=== PATIENT | female | born 2000 | race Caucasian/White ===

== ENCOUNTER 2023-08-02 00:07 | Outpatient (CLI) | payer OTHER, SELFPAY ==
[2023-08-02 00:32] VITALS: BP 123/78; PULSE 102; TEMP 37.4; O2SAT 98
[2023-08-02 00:34] VITALS: BP 123/78; PULSE 113
[2023-08-02 00:37] VITALS: PULSE 109; O2SAT 98
[2023-08-02 00:49] VITALS: BMI 30.8
--- NOTE | 2023-08-02 10:51 | OB.TRI.NOTE ---
HPI - General General Date of Admission: 08/02/23 Date of Service: 08/02/23 HPI Narrative RAFA ZULETA, is a 22 F who presents for vaginal bleeding and crampin. 27 weeks, MINAL 11/01/23 PFSH PFSH Home Medications cetirizine 10 mg capsule (Allergy Relief (cetirizine)) 10 mg PO DAILY PRN allergy symptoms 08/02/23 [History Last Taken Unknown] Allergy/AdvReac Type Severity Reaction Status Date / Time No Known Allergies Allergy Verified 08/02/23 00:35 NST FHR Rate Baby A Baseline: 135 Variability:: Moderate Accelerations:: 15 x 15 Decelerations:: None NST Reactive:: Yes Uterine Activity:: None Assessment & Plan (1) Vaginal bleeding during : PLAN: Plan 1) Reactive NST 2) No contractions, signs of labor 3) Monitor bleeding, if flow and at other times other than bowel movement to call. follow up in office 4) D/C home
== END 2023-08-02 01:35 | disposition home or self-care (01) ==
LOC: WPOUT 00:15 → WP 00:15
PROVIDERS: Referring Provider Advanced Practice Midwife; Visit Provider Advanced Practice Midwife
DX: O46.92 Antepartum hemorrhage, unspecified, second trimester (principal); Z3A.27 27 weeks gestation of pregnancy
CPT/HCPCS: 59025; 59050; 87086; 87088; 99221; G0378

== ENCOUNTER 2023-10-29 08:36 | Outpatient (CLI) | payer OTHER, SELFPAY ==
[2023-08-02 00:32] VITALS: RESP 18
[2023-10-29 08:49] VITALS: BMI 35.1
[2023-10-29 08:52] VITALS: BP 124/79; PULSE 106; PULSE 109; RESP 18; TEMP 36.7; O2SAT 98
--- NOTE | 2023-10-29 10:14 | OB.TRI.NOTE ---
HPI - General General Date of Admission: 10/28/23 Date of Service: 10/28/23 Chief Complaint: decreased movement HPI Narrative RAFA ZULETA, is a 22 F who presents to labor and delivery at 39-4/7 weeks complaining of decreased movement. She denied any vaginal bleeding or leaking of fluid. She had some irregular contractions. Maternal Data Information Final MINAL: 10/25/23 Gestational age: 39 4/7 PFSH PFSH Home Medications cetirizine 10 mg capsule (Allergy Relief (cetirizine)) 10 mg PO DAILY PRN allergy symptoms 08/02/23 [History Last Taken Unknown] Allergy/AdvReac Type Severity Reaction Status Date / Time No Known Allergies Allergy Verified 08/02/23 00:35 NST FHR Rate Baby A Baseline: 135 Variability:: Moderate Accelerations:: 15 x 15 Decelerations:: None NST Reactive:: Yes FHR Category:: Category I Uterine Activity:: no regular ctxs Assessment & Plan (1) 39 weeks gestation of : (2) Decreased movement affecting management of mother, antepartum: PLAN: heart tones are category 1. No evidence of labor. Vitals are stable. DC home with routine follow-up or return as needed.
== END 2023-10-29 09:50 | disposition home or self-care (01) ==
LOC: WPOUT 08:39 → WP 08:39
PROVIDERS: Referring Provider Obstetrics & Gynecology; Visit Provider Obstetrics & Gynecology
DX: O36.8130 Decreased fetal movements, third trimester, not applicable or unspecified (principal); Z3A.39 39 weeks gestation of pregnancy
CPT/HCPCS: 59025; 59050; 99221; G0378

== ENCOUNTER 2023-11-01 16:55 | Outpatient (CLI) | payer OTHER, SELFPAY ==
[2023-11-01 17:10] VITALS: BP 130/79; PULSE 115; PULSE 116; RESP 14; TEMP 36.9; O2SAT 98
[2023-11-01 17:13] VITALS: BMI 35.9
[2023-11-01 17:31] LABS: Color, Urine Yellow (Yellow); Glucose, Dipstick Normal (Normal); Ketone-Dipstick Negative (Negative); Leukocyte Esterase-Dipstick 500 /ul (Negative); Nitrite-Dipstick Negative (Negative); Occult Blood-Urine Negative /ul (Negative); Protein-Dipstick Negative (Negative); Specific Gravity, Urine 1.015 (1.002-1.030); Urine Bilirubin Dipstick Negative (Negative); Urine Clarity Clear (Clear); Urine Urobilinogen Normal (Normal); Urine pH 6.5 (5.0 - 8.0)
[2023-11-01 18:11] LABS: ROM Internal Control Test YES-OK TO RESULT pt. (Internal QC); ROM Patient Test Negative (Negative)
--- NOTE | 2023-11-01 20:05 | OB.TRI.NOTE ---
HPI - General General Date of Service: 11/01/23 HPI Narrative RAFA ZULETA, is a 22 F who presents with possible LOF. PFSH PFSH Home Medications cetirizine 10 mg capsule (Allergy Relief (cetirizine)) 10 mg PO DAILY PRN allergy symptoms 08/02/23 [History Last Taken Unknown] vits no.130-ferrous fum 27 mg iron-folic acid 800 mcg tablet ( Vitamin) 1 tab PO DAILY 11/01/23 [History Last Taken Unknown] Allergy/AdvReac Type Severity Reaction Status Date / Time No Known Allergies Allergy Verified 08/02/23 00:35 NST FHR Rate Baby A Baseline: 135 Variability:: Moderate Accelerations:: 15 x 15 Decelerations:: None Uterine Activity:: Irregular Assessment & Plan (1) False labor: PLAN: Plan Reactive NST
== END 2023-11-01 18:26 | disposition home or self-care (01) ==
LOC: WPOUT 16:59 → WP 16:59
PROVIDERS: Visit Provider Obstetrics & Gynecology
DX: O47.9 False labor, unspecified (principal); Z3A.00 Weeks of gestation of pregnancy not specified
CPT/HCPCS: 59025; 59050; 81002; 84112; 99221; G0378

== ENCOUNTER 2023-11-02 19:55 | Inpatient (IN) | payer OTHER, SELFPAY ==
[2023-11-02] VITALS (11 sets, daily range): BP systolic 133–170; BP diastolic 68–87; PULSE 96–107; RESP 16–18; TEMP 36.6–37.4; O2SAT 86–99; BMI 33.5
[2023-11-02] MEDS: Lactated Ringers 1,000 ML 50 ML IV (20:25)
[2023-11-02 20:40] LABS: Absolute Lymphocyte Count 2.26 X10^3/uL (0.83-4.51); Absolute Neutrophil Count 14.5 X10^3/uL (2.0-7.7); Basophil# 0.06 X10^3/uL; Basophil% 0.3 % (0-1); Eosinophil# 0.16 X10^3/uL; Eosinophils% 0.9 % (0-5); Hematocrit 37.4 % (37-47); Hemoglobin 12.5 g/dL (12.0-15.0); Lymphocyte # 2.26 X10^3/ul (0.83-4.51); Lymphocyte % 12.2 % (19-41); Mean Corp Hgb Conc 33.4 g/dL (32-36); Mean Corpuscular Hgb 28.8 pg (27.0-32.0); Mean Corpuscular Volume 86.2 fL (81-99); Mean Platelet Vol. 11.4 fl (6.2-12.0); Monocyte# 1.48 X10^3/uL; NRBC Flagged by Analyzer 0 % (0-5); Neutrophil # 14.52 X10^3/uL (2.7-7.7); Platelet Count 237 K/mm3 (150-450); RBC Distribution Width CV 13.9 % (11.6-14.6); RBC Distribution Width SD 43.6 fl (35.1-43.9); Red Blood Count 4.34 M/mm3 (4.2-5.4); White Blood Count 18.6 K/mm3 (4.4-11.0)
--- NOTE | 2023-11-02 21:22 | HP.PCM.OB_ITS ---
HPI - General General Date of Admission: 11/02/23 HPI Narrative RAFA ZULETA, is a 22 F who presents at 40w1d in active labor. Maternal Data Information MINAL Calculator Estimated Delivery Date Method Current WG Current Estimate 11/01/23 Manual 40w 1d PFSH PFSH Medical History no medical history Home Medications cetirizine 10 mg capsule (Allergy Relief (cetirizine)) 10 mg PO DAILY PRN allergy symptoms 08/02/23 [History Last Taken 11/01/23 21:00 10 mg] vits no.130-ferrous fum 27 mg iron-folic acid 800 mcg tablet ( Vitamin) 1 tab PO DAILY 11/01/23 [History Last Taken 11/02/23 07:00 1 TAB] Allergy/AdvReac Type Severity Reaction Status Date / Time No Known Allergies Allergy Verified 11/02/23 17:31 Surgical History no surgical history Social History Smoking Status: Never smoker History Elective abortions Hx Para 0 Spontaneous abortions Hx # Term Pregnancies Ectopic pregnancies Hx # Pregnancies Multiple births # of living children NST FHR Rate Baby A Baseline: 135 Variability:: Moderate Accelerations:: 15 x 15 Decelerations:: None FHR Category:: Category I Uterine Activity:: Irregular, moderate to strong ROS Constitutional Constitutional: Reports systems reviewed and no addt'l complaints, except as documented; Denies headache(s) Eyes Eyes: Denies acute decrease in peripheral vision, blurry vision or change in v ision ENT HEENT: Reports systems reviewed and no addt'l complaints, except as documented Cardiovascular Cardiovascular: Denies chest pain or dizziness Respiratory/Chest Respiratory/Chest: Denies cough, dyspnea, dyspnea on exertion, shortness of breath at rest or shortness of breath with exertion Gastrointestinal Gastrointestinal: Denies abdominal pain, diarrhea, nausea or vomiting Genitourinary Genitourinary: Denies abdominal discomfort Musculoskeletal Musculoskeletal: Denies limited range of motion Integumentary Integumentary: Reports systems reviewed and no addt'l complaints, except as documented Neurologic Neurologic: Reports systems reviewed and no addt'l complaints, except as documented Psychiatric Psychiatric: Reports systems reviewed and no addt'l complaints, except as documented Endocrine Endocrinology: Reports systems reviewed and no addt'l complaints, except as documented Hematologic/Lymphatic Hematologic/Lymphatic: Reports systems reviewed and no addt'l complaints, except as documented Allergic/Immunologic Allergic/Immunologic: Reports systems reviewed and no addt'l complaints, except as documented Vital Signs Vital Signs Vital Signs: 11/02/23 17:25 11/02/23 17:26 11/02/23 17:25 Temperature Temperature Source Pulse Rate 97 98 Respiratory Rate Blood Pressure 138/87 H BP Systolic 138 BP Diastolic 87 Pulse Ox 11/02/23 17:26 11/02/23 17:25 11/02/23 17:25 Temperature Temperature Source Temporal Pulse Rate Respiratory Rate 16 Blood Pressure BP Systolic BP Diastolic Pulse Ox 99 11/02/23 17:25 11/02/23 19:15 11/02/23 19:15 Temperature 99.2 F H Temperature Source Pulse Rate 96 Respiratory Rate Blood Pressure 139/79 H BP Systolic 139 BP Diastolic 79 Pulse Ox 11/02/23 19:14 11/02/23 19:16 11/02/23 19:16 Temperature 98.1 F Temperature Source Temporal Pulse Rate Respiratory Rate 16 Blood Pressure BP Systolic BP Diastolic Pulse Ox 11/02/23 20:55 11/02/23 20:56 11/02/23 20:55 Temperature Temperature Source Pulse Rate 107 H 101 H Respiratory Rate Blood Pressure 170/76 H BP Systolic 170 BP Diastolic 76 Pulse Ox 11/02/23 20:56 11/02/23 20:58 11/02/23 20:58 Temperature Temperature Source Pulse Rate 106 H Respiratory Rate Blood Pressure BP Systolic BP Diastolic Pulse Ox 98 86 11/02/23 20:59 11/02/23 20:59 Temperature Temperature Source Pulse Rate 102 H Respiratory Rate Blood Pressure 133/75 H BP Systolic 133 BP Diastolic 75 Pulse Ox Weight Weight: 195 lb Body Mass Index (BMI) 33.5 Physical Exam Const alert and oriented x3 General Appearance: cooperative Orientation / Consciousness: awake, oriented to person, oriented to place and oriented to time Exam Limitations: no limitations HEENT normocephalic Head and Scalp: normal to inspection, normocephalic and atraumatic Face and Sinus: normal facial exam Eyes General Eye: normal appearance of both eyes Neck full ROM Chest Chest: symmetrical chest wall rise Resp normal respiratory effort and normal air movement Auscultation: clear to auscultation bilaterally Cardio regular rate, regular rhythm, S1 normal heart sound, S2 normal heart sound, no murmurs, no rub, no gallops and no clicks GI normal to inspection, nondistended, normoactive bowel sounds and non-tender appearance of the vagina normal Bladder / Kidney Exam: no CVA tenderness Manual OB Exam: presentation cephalic, dilated 6cm, effaced 60%, station - 2 and other IBOW Amniotic Fluid: clear amniotic fluid Back/Spine normal ROM Extremity normal to inspection and full ROM Skin no rashes or lesions noted Neuro oriented x3, CN's II-XII intact bilaterally and moves all extremities Sensorium / Orientation: awake, alert and oriented to person Motor Exam: clonus absent Deep Tendon Reflexes: Rt Patellar (L4): 2+ and Lt Patellar (L4): 2+ Labs Labs Labs: Blood Type O POSITIVE Antibody Screen NEGATIVE Hct 37.4 % (37-47) Hgb 12.5 g/dL (12.0-15.0) Syphilis Total Ab Pending 1hr GCT elevated, 3hr GTT negative RPR negative Rubella Positive HBsAG negative HepC negative HIV non reactive O positive GBS negative Assessment & Plan (1) 40 weeks gestation of : (2) Active labor at term: PLAN: Plan 1) Admit to labor and delivery 2) Routine labs 3) Intermittent Auscultation 4) Pain mangement upon request 5) Hydrotherapy 6) GBS negative 7) collaborative physician, notified of patient status and of above assessment and plan
[2023-11-02 21:30] LABS: Syphilis Antibodies Non-reactive
[2023-11-02] MEDS: LACTATED RINGERS 500 ML 999 ML IV (23:07)
[2023-11-03] VITALS (79 sets, daily range): BP systolic 95–149; BP diastolic 49–87; PULSE 90–124; RESP 16–22; TEMP 36.4–38.3; O2SAT 85–100
[2023-11-03] MEDS: Lactated Ringers 1,000 ML 200 ML IV ×2 (04:45→10:40)
[2023-11-03] MEDS: LACTATED RINGERS 500 ML 999 ML IV ×2 (05:38→17:52)
[2023-11-03] MEDS: fentaNYL-bupivacaine (epidural) 100 ML BAG EPIDURAL ×2 (06:30→10:40)
--- NOTE | 2023-11-03 08:17 | PCM.PN.OB ---
Subjective Subjective Resting in bed with epidural. Family at bedside. Objective Data Objective Data Vital Signs: Vital Signs Temp Pulse Resp BP Pulse Ox 99.2 F H 90 20 H 101/52 L 97 11/03/23 07:35 11/03/23 07:47 11/03/23 07:35 11/03/23 07:47 11/03/23 07:45 Weight: 195 lb Body Mass Index (BMI) 33.5 Intake & Output: Intake and Output for Last 24 Hours 11/01/23 11/02/23 11/03/23 23:59 23:59 23:59 Intake Total 541.67 / 541.67 1458.33 / 1458.33 Output Total 700 / 700 Balance 541.67 / 541.67 758.33 / 758.33 Lab / Micro Data 11/02/23 20:25 Labs: Laboratory Results - last 24 hr 11/02/23 20:25: WBC 18.6 H, RBC 4.34, Hgb 12.5, Hct 37.4, MCV 86.2, MCH 28.8, MCHC 33.4, RDW Std Deviation 43.6, RDW Coeff of Ricco 13.9, Plt Count 237, MPV 11.4, Immature Gran % (Auto) 0.600, Neut % (Auto) 78.0 H, Lymph % (Auto) 12.2 L, [place] % (Auto) 8.0, Eos % (Auto) 0.9, Baso % (Auto) 0.3, Absolute Neuts (auto) 14.5 H, Absolute Lymphs (auto) 2.26, Nucleated RBC % 0, Syphilis Total Ab Non-reactive, Blood Type O POSITIVE, Antibody Screen NEGATIVE Physical Exam Manual OB Exam: dilated 7.5cm, effaced 90 and station -1 NST FHR Rate Baby A Baseline: 145 Variability:: Moderate Accelerations:: 15 x 15 Decelerations:: Variable FHR Category:: Category II Uterine Activity:: Irregular Assessment & Plan (1) Active labor at term: (2) 40 weeks gestation of : PLAN: Plan 1) Epidural for pain management 2) Contractions spaced out, IUPC placed. Will wait 30 minutes and if no contractions discuss starting pitocin 3) Category 2 FHT, continue positional changes 4) Dr.Russell amezcua physician and updated on patient status. physician taking over call and updated.
[2023-11-03] MEDS: Oxytocin 15 Units/NS 250ml 15 UNITS/250 ML IV.SOLN 2 UNITS IV (10:36)
[2023-11-03] MEDS: Acetaminophen 500 MG Tablet PO (14:36)
[2023-11-03] MEDS: Lidocaine 1% (20 ml mdv) 20 ML Vial INFILT (15:32)
--- NOTE | 2023-11-03 15:58 | EX.PCM.OBRPT ---
Assessment & Plan (1) Vaginal delivery: (2) Second degree perineal laceration: (3) Lactating mother: Maternal Data Information MINAL Calculator Estimated Delivery Date Method Current WG Current Estimate 11/01/23 Manual 40w 2d Vaginal Delivery Maternal Presentation Maternal Presentation: Active Labor Operative Information Date of Procedure: 11/03/23 Pre-Operative Diagnosis: Active labor at term Post-Operative Diagnosis: , second degree perineal laceration Surgery / Procedure Performed: Spontaneous Vaginal Delivery Type of Anesthesia: Epidural Estimated Blood Loss: 400 ml Time of Delivery: 15:09 Findings Presentation: Vertex and LIDIA Amniotic Membrane Rupture Type: Artificial Amniotic Fluid Description: Clear (with rupture) and Lightly stained meconium (as labor progressed, meconium) Placental Delivery Description: Spontaneous Placenta Disposition: [facility] Cord Vessel Description: 3 Vessels Cord Entanglement: Around neck x 1, loose Nuchal Cord Compression: Without compression A Gender: Female (1 minute): 8 (5 minute): 9 Delayed Cord Clamping: Yes Post Vaginal Delivery Medications Given After Delivery: IV Pitocin and IM Pitocin Episiotomy Description: None Laceration: Perineal Extension/lac and 2nd degree Complication Complications: None
[2023-11-03] MEDS: Oxytocin 15 Units/NS 250ml 15 UNITS/250 ML IV.SOLN 83 UNITS IV (16:25)
[2023-11-03] MEDS: Ibuprofen 600 MG Tablet PO (16:37)
[2023-11-03] MEDS: Acetaminophen 500 MG Tablet 1000 MG PO (23:36)
[2023-11-04] VITALS (7 sets, daily range): BP systolic 110–126; BP diastolic 60–68; PULSE 79–97; RESP 16; TEMP 36.4–36.8; O2SAT 98–99
[2023-11-04 05:25] LABS: Absolute Lymphocyte Count 3.57 X10^3/uL (0.83-4.51); Absolute Neutrophil Count 13.2 X10^3/uL (2.0-7.7); Basophil# 0.07 X10^3/uL; Basophil% 0.4 % (0-1); Eosinophil# 0.26 X10^3/uL; Eosinophils% 1.4 % (0-5); Hematocrit 30.3 % (37-47); Lymphocyte # 3.57 X10^3/ul (0.83-4.51); Lymphocyte % 18.9 % (19-41); Mean Corpuscular Hgb 29.2 pg (27.0-32.0); Mean Corpuscular Volume 88.3 fL (81-99); Mean Platelet Vol. 10.9 fl (6.2-12.0); Monocyte# 1.69 X10^3/uL; Monocyte% 8.9 % (0-10); NRBC Flagged by Analyzer 0 % (0-5); Neutrophil % 69.8 % (47-70); POSITIVE DIFFERENTIAL YES; Platelet Count 192 K/mm3 (150-450); RBC Distribution Width CV 14.1 % (11.6-14.6); RBC Distribution Width SD 45.4 fl (35.1-43.9); Red Blood Count 3.43 M/mm3 (4.2-5.4); White Blood Count 18.9 K/mm3 (4.4-11.0)
[2023-11-04] MEDS: Acetaminophen 500 MG Tablet 1000 MG PO (05:57)
[2023-11-04 05:58] LABS: Differential Indicated SCAN CRITERIA MET
[2023-11-04 05:59] LABS: Differential Comment SCANNED
[2023-11-04] MEDS: Senna/Docusate Sodium 1 Tablet PO (08:45)
--- NOTE | 2023-11-04 08:45 | PCM.PN.CNM ---
Subjective Subjective Patient seen at bedside. Has ambulated and voided since delivery. Pain is controlled with Tylenol. with support. Lochia is moderate. Objective Data Objective Data Vital Signs: Vital Signs Temp Pulse Resp BP Pulse Ox O2 Del Method 97.9 F 92 16 112/68 99 Room Air 11/04/23 08:22 11/04/23 08:23 11/04/23 08:22 11/04/23 08:23 11/04/23 08:23 11/04/23 08:22 Oxygen Delivery Method Room Air Weight: 195 lb Body Mass Index (BMI) 33.5 Intake & Output: Intake and Output for Last 24 Hours 11/02/23 11/03/23 11/04/23 23:59 23:59 23:59 Intake Total 541.67 / 541.67 4918.44 / 4918.44 Output Total 3600 / 3800 200 / 200 Balance 541.67 / 541.67 1318.44 / 1118.44 -200 / -200 Lab / Micro Data 11/04/23 05:16 Labs: Laboratory Results - last 24 hr 11/04/23 05:16: WBC 18.9 H, RBC 3.43 L, Hgb 10.0 L, Hct 30.3 L, MCV 88.3, MCH 29.2, MCHC 33.0, RDW Std Deviation 45.4 H, RDW Coeff of Ricco 14.1, Plt Count 192, MPV 10.9, Immature Gran % (Auto) 0.600, Neut % (Auto) 69.8, Lymph % (Auto) 18.9 L, [place] % (Auto) 8.9, Eos % (Auto) 1.4, Baso % (Auto) 0.4, Absolute Neuts (auto) 13.2 H, Absolute Lymphs (auto) 3.57, Nucleated RBC % 0, Differential Comment SCANNED, Diff Path Review May foll ROS Eyes Eyes: Denies blurry vision, change in vision or spots in vision ENT HEENT: Denies dizziness or headache(s) Cardiovascular Cardiovascular: Denies abdominal pain, chest pain or dyspnea Respiratory/Chest Respiratory/Chest: Denies cough, dyspnea, shortness of breath at rest or shortness of breath with exertion Gastrointestinal Gastrointestinal: Denies abdominal pain, diarrhea or vomiting Genitourinary Genitourinary: Denies change in urinary stream, difficulty urinating or dysuria Musculoskeletal Musculoskeletal: Reports none Integumentary Integumentary: Denies rash Neurologic Neurologic: Denies dizziness, headache(s), memory loss or weakness Assessment & Plan (1) Lactating mother: (2) Second degree perineal laceration: (3) Vaginal delivery: PLAN: Plan PPD 1 Routine care support Anticipate discharge home tomorrow
[2023-11-04] MEDS: Ibuprofen 600 MG Tablet PO ×2 (08:46→17:40)
[2023-11-04 11:01] LABS: Pathologist Review Reviewed
[2023-11-05 02:48] VITALS: BP 109/59; PULSE 83
[2023-11-05 02:54] VITALS: BP 109/59; PULSE 72; RESP 16
--- NOTE | 2023-11-05 07:47 | PCM.DC.SUM ---
Providers Date of Admission: 11/02/23 Primary Care Physician: Savi Primary Care Phys Reason For Visit: VAGINAL DELIVERY Diagnosis Discharge Diagnosis (1) Lactating mother: Status: Acute Code(s): Z39.1 - Encounter for care and examination of lactating mother (2) Second degree perineal laceration: Status: Acute Code(s): O70.1 - Second degree perineal laceration during delivery (3) Vaginal delivery: Status: Acute Code(s): O80 - Encounter for full-term uncomplicated delivery Plan PPD 2 Routine care support Desires discharge home with follow up in office Medications at Discharge Home Medications cetirizine 10 mg capsule (Allergy Relief (cetirizine)) 10 mg PO DAILY PRN allergy symptoms 08/02/23 vits no.130-ferrous fum 27 mg iron-folic acid 800 mcg tablet ( Vitamin) 1 tab PO DAILY 11/01/23 acetaminophen 500 mg tablet 1,000 mg (2 x 500 mg) PO Q6H PRN PRN Pain 1-10 Or Fever #0 tabs 11/05/23 ibuprofen 600 mg tablet 600 mg PO Q6H PRN PRN Pain Score 1-10 #0 tabs 11/05/23 Hospital Course Operations None Procedures None Summary of Care Provided Minutes Spent on Discharge: 15 Hospital Course: Patient had . Hospital course was uneventful. Physical Exam Const alert and no apparent distress General Appearance: cooperative and comfortable Exam Limitations: no limitations HEENT normocephalic Eyes General Eye: normal appearance of both eyes Neck full ROM General: normal visual inspection Chest Chest: symmetrical chest wall rise Resp normal respiratory effort and normal air movement Effort and Inspection: symmetric chest movement Auscultation: clear to auscultation bilaterally Cardio regular rate and regular rhythm GI normal to inspection, nondistended, normoactive bowel sounds Back/Spine normal ROM Extremity full ROM and no calf tenderness General Extremity: normal exam except as noted Skin no rashes or lesions noted Neuro CN's II-XII intact bilaterally Psych mental status grossly normal Weight / BMI Weight Weight: 195 lb Body Mass Index (BMI) 33.5 ABG / Lab / Microbiology Data 11/04/23 05:16 Laboratory: Laboratory Results - last 24 hr 11/04/23 05:16: Diff Path Review Reviewed D/C Instructions Discharge Diet: No restrictions May resume sexual activity in: 6-8 weeks Weight Bearing Status: Weight bearing as tolerated Call your doctor if you observe: Fever of 101 or Higher, Inability to urinate, Using more than 1 pad per hour, Shortness of breath, Chest pain, Calf discomfort and Uncontrolled pain Please Follow Up With: Katlin Campos CNM When: 2 weeks virtual visit/ 6 weeks in office Meaningful Use Info Meaningful Use Meaningful Use Diagnoses (Choose all that apply): None applicable Ischemic Stroke Statin Dosing Therapy Reference: STATIN DOSE THERAPY REFERENCE: * Patients > 75 years receive moderate or high dose statin therapy. * Patients 75 years or YOUNGER should receive HIGH intensity statin dose unless contraindicated. You will be required to document reason for non-treatment if statin daily dose does not meet guidelines. HIGH DOSE STATIN THERAPY DAILY Atorvastatin > than or = to 40 mg Rosuvastatin > than or = to 20 mg Amlodipine + Atorvastatin > than or = to 2.5/40 mg Ezetimibe + Simvastatin 10/80 mg Simvastatin 80mg Discharge Plan Admission Admit Date/Time: 11/02/23 19:55 Primary Reason for Your Visit: Labor and Delivery Attending Provider: Irena Cortes Primary Care Provider: Care Physician,Savi Primary Discharge Orders/Prescriptions Prescriptions: New acetaminophen 500 mg Tablet 1,000 mg PO Q6H PRN PRN (Reason: Pain 1-10 Or Fever) Qty: 0 0RF ibuprofen 600 mg Tablet 600 mg PO Q6H PRN PRN (Reason: Pain Score 1-10) Qty: 0 0RF Continued Vitamin 27 mg iron- 800 mcg tablet 1 tab PO DAILY No Action Allergy Relief (cetirizine) 10 mg capsule 10 mg PO DAILY PRN (Reason: allergy symptoms) Referrals / Follow Up: Care Physician,Savi Primary [Primary Care Provider] -
--- NOTE | 2023-11-05 07:52 | PCM.DC ---
Discharge Instructions Diet Discharge Diet: No restrictions Activity May resume sexual activity in: 6-8 weeks Weight Bearing Status: Weight bearing as tolerated Dressing / Incision Call your doctor if you observe: Fever of 101 or Higher, Inability to urinate, Using more than 1 pad per hour, Shortness of breath, Chest pain, Calf discomfort and Uncontrolled pain Follow Up Care Please Follow Up With: Katlin Campos CNM Test Results: Test results from this visit will be discussed in further detail at your follow-up appointment, if applicable. Discharge Plan Admission Admit Date/Time: 11/02/23 19:55 Primary Reason for Your Visit: Labor and Delivery Attending Provider: Irena Cortes Primary Care Provider: Care Physician,Savi Primary Discharge Orders/Prescriptions Prescriptions: New acetaminophen 500 mg Tablet 1,000 mg PO Q6H PRN PRN (Reason: Pain 1-10 Or Fever) Qty: 0 0RF ibuprofen 600 mg Tablet 600 mg PO Q6H PRN PRN (Reason: Pain Score 1-10) Qty: 0 0RF Continued Vitamin 27 mg iron- 800 mcg tablet 1 tab PO DAILY No Action Allergy Relief (cetirizine) 10 mg capsule 10 mg PO DAILY PRN (Reason: allergy symptoms) Referrals / Follow Up: Katlin Campos CNM [Med Staff - [facility] Practice Prof] - Care Physician,No Primary [Primary Care Provider] - Disposition Disposition (needs filled in before D/C Order can be placed): Home, Self Care
[2023-11-05 08:16] VITALS: BP 110/64; PULSE 81; RESP 16; TEMP 36.4
[2023-11-05 08:17] VITALS: BP 110/64; PULSE 81
== END 2023-11-05 11:29 | disposition home or self-care (01) | DRG 807 ==
LOC: WPOUT 19:58 → WP 19:58
PROVIDERS: Admitting Provider Advanced Practice Midwife; Referring Provider Advanced Practice Midwife; Visit Provider Advanced Practice Midwife
DX: O70.1 Second degree perineal laceration during delivery (principal); Z37.0 Single live birth; O69.81X0 Labor and delivery complicated by cord around neck, without compression, not applicable or unspecified; Z3A.40 40 weeks gestation of pregnancy
CPT/HCPCS: 59025; 59050; 85025; 86780; 86850; 86900; 86901; 99221; J7120; G0378